=== PATIENT | male | born 1955 | race Caucasian/White ===

== ENCOUNTER → 2017-01-28 | Day surgery (SDC) | payer OTHER ==
[~2017-01-28] VITALS: Ht 180.3 cm; Wt 112.2 kg
[2017-01-28] VITALS (8 sets, daily range): BP systolic 120–143; BP diastolic 58–73; PULSE 54–60; RESP 9–19; O2SAT 96–98
[~2017-01-28] MED LIST: ALFU10TA11 PO; AMLO10TA3 PO; ATOR20TA PO; DIPH25CA6 PO; Dexamethasone 4 mg/mL Inj IVPUSH PRN; Dexamethasone 4 mg/mL Inj ONE; EPHEDrine Sulfate 50 mg/mL Inj IVPUSH PRN; HYDROcodone-APAP 5-325 mg Tablet PO PRN; HYDROmorphone 1 mg/mL Inj IVPUSH PRN; LOSA100T29 PO; Lactated Ringer's 1,000 ML IV SCH; Lactated Ringer's 500 ML IV PRN; Lidocaine 2%-Epi 1:100,000 20 mL Inj INFILTRATE ONE; MetoCLOpramide 5 mg/mL 2 mL Inj IVPUSH PRN; OMEP20TA24 PO; Ondansetron 2 mg/mL 2 mL Inj IVPUSH PRN; Ondansetron 2 mg/mL 2 mL Inj ONE; Phenylephrine 10,000 mCg/mL Inj IVPUSH PRN; Propofol 10,000 mCg/mL 20 mL Inj ONE; Ropivacaine-PF 0.5% 30 mL Inj INFILTRATE ONE; fentaNYL-PF 50 mCg/mL 2 mL Inj IVPUSH PRN; fentaNYL-PF 50 mCg/mL 2 mL Inj ONE
[2017-01-28] MEDS: Lactated Ringer's 1,000 ML IV SCH ×2 (07:26→08:56)
--- NOTE | 2017-01-28 08:05 | PCM.HPANE ---
Patient Data Date of Service: Jan 28, 2017 Surgeon Admitting Provider: Attending Provider:Douglas Mckinley DO Primary Care Physician:Salvador Ventura MD Other Provider:Nicki Springer Anesthesia Reason for Visit Right Knee Torn Medial Meniscus Ht/WT & BMI Height (Feet): 5 Height (Inches): 11.00 Weight (Kilograms): 112.2 Body Mass Index 34.00 Allergies Coded Allergies: No Known Allergies (Unverified , 01/24/17) Past Anesthesia History Anesthesia History: Denies:: Abnormal Airway, Anesthesia Reactions, Difficult Intubation, Fam Anesthesia Reaction, Fam Malignant Hypertherm, Malignant Hyperthermia Diabetes History Hx Diabetes?: No MRSA MRSA: No Medications Hypertension Medication: Yes Home Meds Incl Beta Ayush: No Reported Medications Losartan Potassium 100 Mg [id number] Mg PO DAILY 01/27/17 Amlodipine 10 Mg Ipxvjy25 Mg PO DAILY Ref 0 01/27/17 diphenhydrAMINE HCl (Benadryl)25 Mg Dslskrq54 Mg PO HS PRN Ref 0 01/27/17 Omeprazole Magnesium (Prilosec Otc)20 Mg Tablet.dr20 Mg PO DAILY #1 PKG Ref 0 01/27/17 Atorvastatin (Lipitor)20 Mg Tkajer58 Mg PO DAILY Ref 0 01/24/17 Alfuzosin ER 10 Mg Tab.er.24h10 Mg PO DAILY 01/24/17 Discontinued Reported Medications [losartan] No Conflict [id number] Mg DAILY 01/24/17 [amlodipine] No Conflict Check10 Mg DAILY 01/24/17 History History of ENT Problems?: Yes HEENT History: Positive for:: Hearing Problem (doesnt usually wear aids) Sinus Problem (non reactive nasal rhinitis, hx of rhinoplasty) Denies:: Abnormal Airway Cataracts Difficult Intubation Dysphagia Glaucoma TMJ Denture Type: None Teeth Condition: Within Normal Limits Hx of Heart Problems?: Yes Cardiovascular History: Positive for:: Hypertension Denies:: AICD Abdominal Aortic Aneurism Atrial Fibrillation Chest Pain Coronary Artery Disease Edema Heart Murmur Irregular Heartbeat Pacemaker Peripheral Vascular Hx of Respiratory Problem?: Yes Respiratory History: Positive for:: Use of C-PAP Machine Denies:: Asthma COPD Emphysema Oxygen Administration Pneumonia Tuberculosis Hx Neurologic Problems?: No Neurological History: Denies:: Dizziness Headaches Multiple Sclerosis Parkinson's Disease Seizures Hx of GI Problems?: Yes Gastrointestinal History: Positive for:: Gastroesphageal Reflux Denies:: Heartburn Hx of Problems?: No Genitourinary History: Denies:: Kidney Stones Urinary Tract Infection Male Hx: Positive for:: Prostate Problems (BPH-LUTS) Skin History: Denies:: History Skin Disorders? Pressure Ulcers Hx Musculoskeletal Problems?: Yes Musculoskeletal History: Positive for:: Back Injury (low back issues- hx of injections) Musculoskeletal Trauma (right knee current admission problem) Denies:: Degenerative Joint Fibromyalgia Joint Replacement Myasthenia Gravis Osteoarthritis (poss post traumatic) Rheumatoid Arthritis Hx of Psycho/Social Problems?: No Psycho Social History: Denies:: Anxiety Hx Depression Hx Surgeries?: Yes (sinus, tonsil, lis franc injury) Hx Any Other Health Problems?: Yes Other History: Denies:: Cancer Thyroid Disease History Blood Transfusions: Positive for:: Accept Blood Products? Denies:: Blood Transfusions Hx Diabetes: No Hx Alcohol Use: YesAlcoholic Drinks Per Day: one half drink monthlyHx Substance Use: NoHave You Smoked inLast 12 mo: No Stop/Bang P-Blood Pressure: treated: Yes B- Body Mass Index > 35 kg/m2: Yes A- Age over 50: Yes N- Neck Large Circumference: No G- Gender Male: Yes [place] Risk Assessment: High Risk, =/>3 Yes Risk Assessment Category Category 1A: Patient has history of documented sleep apnea, and HAS NOT received any narcotic, sedative or anesthesia administration during this stay. Category 1B: Patient has history of documented sleep apnea, and HAS received any narcotic , sedative or anesthesia administration during this stay Category 2: Patient has SUSPECTED Obstructive Sleep Apnea, and HAS received any narcotic , sedative or anesthesia administration during this stay. Category 3: Patient has SUSPECTED Obstructive Sleep Apnea and HAS NOT received narcotic, sedative or anesthesia administration during this stay. Category 4: Outpatient in Procedural Areas with known sleep apnea or who screen positive for High Risk via the STOP/BANG questionnaire. Exam Exam Vital Signs Vital Signs Date Time Temp Pulse Resp B/P Pulse Ox O2 Delivery O2 Flow Rate FiO2 01/28/17 07:51 CPAP/BIPAP General Appearance: Alert, Oriented X3, Cooperative, No Acute Distress HEENT/AIRWAY: MP 3 (lARGE TONGUE, THICK NECK; KNOWN [place]) Lungs: Clear to Auscultation, Normal Air Movement Heart: Exam Unremarkable, Regular Rate/Rhythm, No Murmurs/Rubs/Gallops Meds/Labs/Diagnostics Admission Meds Current Medications Lactated Ringer's (Lr) 1,000 ml @ 120 mls/hr Q8H20M IV Last administered on t 07:26; Start 01/28/17 at 05:00; Stop 01/28/17 at 13:19 Plan Impression Patient chart reviewed, patient interviewed and anesthestic plan with risks, benefits, and alternatives discussed, and informed consent obtained. NPO per Anesth. Guidelines: Yes ASA Physical Status: ASA2 Mod Systemic Disease Anesthetic Plan: GA Bene/Risks/Altern/Consents: Yes HP Complete Prior to Induction: Yes Delgado Engle DO Jan 28, 2017 08:05
--- NOTE | 2017-01-28 10:39 | PCM.ANEP1 ---
Post Anesthesia PACU Phase 1 Assessment Date of Service: Jan 28, 2017 Vital Signs Vital Signs Date Time Temp Pulse Resp B/P Pulse Ox O2 Delivery O2 Flow Rate FiO2 01/28/17 10:21 36.4 54 11 123/68 98 Room Air 01/28/17 10:05 36.3 57 13 121/67 98 Room Air 01/28/17 10:00 54 18 125/67 97 Room Air 01/28/17 09:55 60 19 131/65 96 Room Air 01/28/17 09:51 57 10 139/72 98 Simple Mask 8 01/28/17 09:45 36.3 57 9 143/73 96 Simple Mask 8 01/28/17 07:51 CPAP/BIPAP 01/28/17 07:51 36 56 16 141/58 98 Room Air Anesthetic Administered: GA Level of Alertness: Awake, talking WHITING's with Equal Strength: Yes Pain: No Nausea or Vomiting: No CV Function & Hydration Stable: Yes Airway Device: lma-removed in PACU during my attendance Oxygen Delivery: Room Air Lungs: Clear to Auscultation, Normal Air Movement Dermatome Level: Full Sensation PACU Phase 2 Assessment Complications: No Patient Instructions Provided: N/A Delgado Engle DO Jan 28, 2017 10:39
--- NOTE | 2017-01-28 11:22 | OP ---
[address] [address] OPERATIVE REPORT PATIENT: DARREL THAPA : 1955 MR#: [id number] ADMIT: 01/28/2017 JOB ID: [id number] DATE OF SURGERY: 01/28/2017 PREOPERATIVE DIAGNOSIS(ES): Right knee torn medial meniscus. POSTOPERATIVE DIAGNOSIS(ES): Right knee torn medial meniscus. PROCEDURE: Right knee video arthroscopy with partial medial meniscectomy. SURGEON: Douglas Mckinley DO ANESTHESIA: LMA general. INDICATIONS: The patient is a 61-year-old male who injured his right knee and has had persistent problems with mechanical-type symptoms from a torn medial meniscus. He had an MRI performed which demonstrated a torn medial meniscus. We discussed treatment options for this and he wished to proceed with a knee arthroscopy after failing conservative measures. We discussed risks, benefits, and possible complications of surgery. All questions were answered. He wished to proceed. PROCEDURE IN DETAIL: The patient was brought to the operating room. He was given an LMA general anesthetic and the right lower extremity was sterilely prepped and draped. An incision was made over the anterolateral knee at the level of joint line and the blunt trocar was introduced into the knee. Inspection was undertaken. 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 A medial portal was established under needle localization and his meniscal tear was resected back to a stable base with a combination of biters and shaver. He also had a small amount of chondromalacia at C2 on the medial femoral condyle. The ACL was inspected and found to be intact. His lateral compartment was pristine. His patellofemoral compartment was gently debrided of loose cartilage and the scope was then removed. The portals were closed with interrupted nylon suture. Naropin was added as an adjunct local anesthetic. Sterile dressings were applied. Patient tolerated the procedure well. BLOOD LOSS: Minimal. POSTOPERATIVE PROTOCOL: Will have the patient weightbear to tolerance. Use crutches as needed. Ice and elevate. Follow up in two weeks or sooner if needed.
== END | disposition home or self-care (01) ==
LOC: SAS 06:36
PROVIDERS: ATTEND Orthopaedic Surgery
DX: S83.231A Complex tear of medial meniscus, current injury, right knee, initial encounter (principal); M22.41 Chondromalacia patellae, right knee; I10 Essential (primary) hypertension; E78.00 Pure hypercholesterolemia, unspecified; G47.33 Obstructive sleep apnea (adult) (pediatric); N40.1 Benign prostatic hyperplasia with lower urinary tract symptoms; R39.14 Feeling of incomplete bladder emptying; K21.9 Gastro-esophageal reflux disease without esophagitis; X50.3XXA Overexertion from repetitive movements, initial encounter; X50.0XXA Overexertion from strenuous movement or load, initial encounter; Y93.89 Activity, other specified; Y92.9 Unspecified place or not applicable; Y99.8 Other external cause status
CPT/HCPCS: 29881; J1100; J1885; J2250; J2405; J2704; J2795; J3010; J7120